=== PATIENT | female | born 1985 | race African-American/Black ===

== ENCOUNTER 2017-01-29 20:19 | Emergency (ER) | payer OTHER ==
[~2017-01-29] VITALS: Ht 167.6 cm; Wt 52.0 kg
[~2017-01-29 20:19] MED LIST: PRENAT PO
[2017-01-29 20:21] VITALS: Ht 167.6 cm; Wt 52.0 kg
[2017-01-29] MEDS ORDERED: ONDANSETRON (ODT) 4 MG TAB ODT STA (20:50)
--- NOTE | 2017-01-29 21:21 | ERD ---
ER Documentation Chief Complaint Date/Time DATE: 01/29/17 TIME: 21:15 Chief Complaint 9 wks , pelvic pain since last night HPI 31 year old female presents here in the ER for complaints of pelvic pain and vaginal spotting started today, patient appears to be 9 weeks , 6 para 2 2. Patient also has been having diarrhea and vomiting that started today, 3 episodes of diarrhea. Patient also had 2 episodes of vomiting. Patient does not have any blood in the stool or black stool. Patient does not have any blood in the vomit. Patient also is complaining of dysuria burning pain 4/10 scale, accompanying the pelvic pain and vaginal spotting. Patient describes pelvic pain as cramping pain 4/10 scale, accompanying the vaginal bleeding. ROS All systems reviewed and are negative except as per history of present illness. Medications Home Meds Reported Medications Multivit/Min/Fol Ac/Iron/Pren* ( S*) 1 Tab Tab, 1 TAB PO DAILY, TAB 08/07/14 Allergies Allergies: Coded Allergies: No Known Allergy (Unverified , 08/07/14) PMhx/Soc Immunizations: Up to date Medical and Surgical Hx: pt denies Medical Hx, pt denies Surgical Hx Hx Alcohol Use: No Hx Substance Use: No Hx Tobacco Use: No Smoking Status: Never smoker FmHx Family History: No coronary disease, No diabetes, No other Physical Exam Vitals Vital Signs Date Time Temp Pulse Resp B/P Pulse Ox O2 Delivery O2 Flow Rate FiO2 01/29/17 20:21 97.8 88 20 117/71 100 Physical Exam GENERAL: The patient is well developed and appropriate for usual state of health, in no apparent distress. CHEST: Clear to auscultation bilaterally. There are no rales, wheezes or rhonchi. HEART: Regular rate and rhythm. No murmurs, clicks, rubs or gallops. No S3 or S4. ABDOMEN: Soft, gravid abdomen noted. Hyperactive bowel sounds. No rebound or guarding. No gross peritonitis. No gross organomegaly or masses. No Cummings sign or McBurney point tenderness. BACK: No midline or flank tenderness. EXTREMITIES: Equal pulses bilaterally. There is no peripheral clubbing, cyanosis or edema. No focal swelling or erythema. Full range of motion. Grossly neurovascularly intact. NEURO: Alert and oriented. Cranial nerves 2-12 intact. Motor strength in all 4 extremities with 5/5 strength. Sensation grossly intact. Normal speech and gait. SKIN: There is no apparent rash or petechia. The skin is warm and dry. HEMATOLOGIC AND LYMPHATIC: There is no evidence of excessive bruising or lymphedema. No gross cervical, axillary, or inguinal lymphadenopathy. : Small amount of blood in the vaginal vault, cervical os is closed, no cervical motion tenderness or adnexal tenderness noted. Result Diagram: 01/29/17212201/29/172122 Results 24 hrs Laboratory Tests Test 01/29/17 21:09 01/29/17 21:23 Urine Color YELLOW Urine Clarity CLOUDY Urine pH 6.0 Urine Specific [place] 1.031 Urine Ketones 1+mg/dL Urine Nitrite NEGATIVEmg/dL Urine Bilirubin NEGATIVEmg/dL Urine Urobilinogen NEGATIVEmg/dL Urine Leukocyte Esterase 3+Juan R/ul Urine Microscopic RBC > 182/HPF Urine Microscopic WBC > 182/HPF Urine Squamous Epithelial Cells FEW/HPF Urine Bacteria FEW/HPF Urine Mucus MODERATE/HPF Urine Hemoglobin 3+mg/dL Urine Glucose NEGATIVEmg/dL Urine Total Protein 2+mg/dl White Blood Count 8.310^3/ul Red Blood Count 4.0110^6/ul Hemoglobin 11.2g/dl Hematocrit 34.6% Mean Corpuscular Volume 86.3fl Mean Corpuscular Hemoglobin 27.9pg Mean Corpuscular Hemoglobin Concent 32.4g/dl Red Cell Distribution Width 13.4% Platelet Count 59509^3/UL Mean Platelet Volume 10.9fl Neutrophils % 79.0% Lymphocytes % 13.7% Monocytes % 5.9% Eosinophils % 0.7% Basophils % 0.5% Nucleated Red Blood Cells % 0.0/100WBC Neutrophils # 6.510^3/ul Lymphocytes # 1.110^3/ul Monocytes # 0.510^3/ul Eosinophils # 0.110^3/ul Basophils # 0.010^3/ul Nucleated Red Blood Cells # 0.010^3/ul Sodium Level 140mmol/L Potassium Level 4.2mmol/L Chloride Level 100mmol/L Carbon Dioxide Level 25mmol/L Anion Gap 19 Blood Urea Nitrogen 12mg/dl Creatinine 0.66mg/dl Glucose Level 102mg/dl Calcium Level 9.6mg/dl Total Bilirubin 0.4mg/dl Direct Bilirubin 0.00mg/dl Indirect Bilirubin 0.4mg/dl Aspartate Amino Transf (AST/SGOT) 19IU/L Alanine Aminotransferase (ALT/SGPT) 30IU/L Alkaline Phosphatase 60IU/L Total Protein 7.9g/dl Albumin 4.3g/dl Globulin 3.60g/dl Albumin/Globulin Ratio 1.19 Beta HCG, Quantitative 614939.0mIU/ml Current Medications Medications (Trade) Dose Ordered Sig/Laury Route PRN Reason Start Time Stop Time Status Last Admin Dose Admin Ondansetron HCl (Zofran Odt) 4 mg ONCE STAT ODT 01/29/17 20:50 01/29/17 20:51 DC 01/29/17 21:13 Patient was given Zofran here in the emergency department. After treatment, patient was able to tolerate po fluids here in the emergency department without any vomiting. There is no signs and symptoms of dehydration. PROCEDURE: OB Ultrasound. CLINICAL INDICATION: Positive test. Vaginal bleeding. TECHNIQUE: Ultrasound of the pelvis was performed with transabdominal sonography in the axial and sagittal planes. COMPARISON: No prior study is available for comparison. FINDINGS: There is a single intrauterine gestational sac. pole and yolk sac are present. There is heart motion. heart rate is 168 beats per minute. [place]-rump length is 2.10 cm. Mean sac diameter is 2.72 cm. There is a small subchorionic hemorrhage. Menstrual age by ultrasound dates is 8 weeks 2 days. This indicates an expected date of delivery of 09/08/2017. The right ovary appears normal measuring 3.0 x 2.6 x 2.5 cm. The left ovary appears normal measuring 3.5 x 1.6 x 2.5 cm. Color Doppler and pulsed Doppler sonography demonstrate normal flow to the ovaries. There is no other pelvic mass or free fluid. IMPRESSION: 1. Single live intrauterine gestation of 8 weeks 2 days menstrual age by ultrasound dates. 2. Expected date of delivery is 09/08/2017. 3. Small subchorionic hemorrhage. RPTAT: QQ .Merlin Cason MD, MD Date Time Electronically viewed and signed by .Merlin Cason MD, on 01/29/2017:29 .R/ CC: HAVEN FARNSWORTH NP Procedures/MDM Medical Decision Making: Patient's symptoms of vomiting and diarrhea most active consistent with viral gastroenteritis. No symptoms of dehydration at this time. There is low suspicion for abdominal emergencies at this time. Patients abdominal exam is normal at this time. Patients radiology exam does not show any abdominal emergencies at this time. There is low suspicion for appendicitis, cholecystitis, abdominal aortic aneurysms or peritonitis at this time. There is low suspicion for sepsis. Patient appears well and is hemodynamically stable. Patients vaginal bleeding is most likely consistent of possible threatened . Patient does not show any evidence of hypovolemic shock. Patients hemoglobin and hematocrit is stable. There is low suspicion for ectopic . VIRI results show intrauterine with subchorionic hemorrhage BetaHCG Quantitative is appropriate The patient is Rh+, does not need RhoGAM this time. There is no signs of symptoms of dehydration. There is low suspicion for sepsis. Patient appears well and is hemodynamically stable. She also has urinary tract infection and will be treated. No symptoms of pyelonephritis at this time. Disposition: Home. Condition: Stable Prescription: Keflex, Tylenol Instructions: Patient is advised to do bed rest, avoid heavy lifting, and avoid having sex until cleared by OB doctor. Patient is advised to follow up with OB doctor or here at the ER in 48 hours for reevaluation of symptoms, repeat beta HCG quantitative and ultrasound. Patient is advised that is symptoms are worst, severe bleeding, dizziness, severe abdominal pain, fever, worst signs and symptoms to return to the emergency department immediately. Departure Diagnosis: Primary Impression: Viral gastroenteritis Additional Impressions: UTI (urinary tract infection) Urinary tract infection type: acute cystitis Hematuria presence: without hematuria Qualified Code: N30.00 - Acute cystitis without hematuria Vaginal bleeding in Trimester: first trimester Qualified Code: O46.91 - Vaginal bleeding in , first trimester Subchorionic hemorrhage Fetus number: single or unspecified fetus Trimester: first trimester Qualified Code: O41.8X10 - Subchorionic hemorrhage, first trimester, not applicable or unspecified fetus Intrauterine Condition: Stable Patient Instructions: Gastroenteritis, Viral (6Y-Adult), Understanding Urinary Tract Infections (UTIs), Vaginal Bleed in Additional Instructions: Patient is advised to do bed rest, avoid heavy lifting, and avoid having sex until cleared by OB doctor. Patient is advised to follow up with OB doctor or here at the ER in 48 hours for reevaluation of symptoms, repeat beta HCG quantitative and ultrasound. Patient is advised that is symptoms are worst, severe bleeding, dizziness, severe abdominal pain, fever, worst signs and symptoms to return to the emergency department immediately. HAVEN FARNSWORHT NP Jan 29, 2017 21:21
[2017-01-29 21:28] LABS: ADD SCAN DIFF NO
--- NOTE | 2017-01-29 21:29 | RADRPT ---
PROCEDURE: OB Ultrasound. CLINICAL INDICATION: Positive test. Vaginal bleeding. TECHNIQUE: Ultrasound of the pelvis was performed with transabdominal sonography in the axial and sagittal planes. COMPARISON: No prior study is available for comparison. FINDINGS: There is a single intrauterine gestational sac. pole and yolk sac are present. There is heart motion. heart rate is 168 beats per minute. [place]-rump length is 2.10 cm. Mean sac diameter is 2.72 cm. There is a small subchorionic hemorrhage. Menstrual age by ultrasound dates is 8 weeks 2 days. This indicates an expected date of delivery of 09/08/2017. The right ovary appears normal measuring 3.0 x 2.6 x 2.5 cm. The left ovary appears normal measuring 3.5 x 1.6 x 2.5 cm. Color Doppler and pulsed Doppler sonography demonstrate normal flow to the ovaries. There is no other pelvic mass or free fluid. IMPRESSION: 1. Single live intrauterine gestation of 8 weeks 2 days menstrual age by ultrasound dates. 2. Expected date of delivery is 09/08/2017. 3. Small subchorionic hemorrhage. RPTAT: QQ .Merlin Cason MD, Date Time Electronically viewed and signed by .Merlin Cason MD, on 01/29/2017 21:29 .R/
[2017-01-29 21:31] LABS: BASOPHILS % 0.5 % (0.0-2.0); EOSINOPHILS # 0.1 10^3/ul (0.0-0.5); EOSINOPHILS % 0.7 % (0.0-7.0); HEMATOCRIT 34.6 % (37.0-47.0); HEMOGLOBIN 11.2 g/dl (12.0-16.0); LYMPHOCYTES # 1.1 10^3/ul (0.8-2.9); LYMPHOCYTES % 13.7 % (15.0-51.0); MEAN CORPUSCULAR HEMOGLOBIN 27.9 pg (29.0-33.0); MEAN CORPUSCULAR HGB CONC 32.4 g/dl (32.0-37.0); MEAN CORPUSCULAR VOLUME 86.3 fl (82.0-101.0); MEAN PLATELET VOLUME 10.9 fl (7.4-10.4); MONOCYTE # 0.5 10^3/ul (0.3-0.9); MONOCYTES % 5.9 % (0.0-11.0); NEUTROPHIL # 6.5 10^3/ul (1.6-7.5); PLATELET COUNT 212 10^3/UL (140-415); RED BLOOD COUNT 4.01 10^6/ul (4.20-5.40); RED CELL DISTRIBUTION WIDTH 13.4 % (11.5-14.5); WHITE BLOOD COUNT 8.3 10^3/ul (4.8-10.8)
[2017-01-29 21:49] LABS: ADD UMIC YES; UR ASCORBIC ACID NEGATIVE (NEGATIVE); UR BACTERIA FEW /HPF (NONE SEEN); UR BILIRUBIN (Dip) NEGATIVE (NEGATIVE); UR BLOOD (Dip) 3+ mg/dL (NEGATIVE); UR CLARITY CLOUDY (CLEAR); UR COLOR YELLOW (YELLOW); UR GLUCOSE (Dip) NEGATIVE (NEGATIVE); UR KETONES (Dip) 1+ mg/dL (NEGATIVE); UR LEUKOCYTE ESTERASE (Dip) 3+ Leu/ul (NEGATIVE); UR MUCUS MODERATE /HPF (NONE SEEN); UR NITRITE (Dip) NEGATIVE (NEGATIVE); UR RBC > 182 /HPF (0-5); UR SPECIFIC GRAVITY (Dip) 1.031 (1.003-1.030); UR SQUAMOUS EPITHELIAL CELL FEW /HPF (FEW); UR TOTAL PROTEIN (Dip) 2+ mg/dl (NEGATIVE); UR UROBILINOGEN (Dip) NEGATIVE (NEGATIVE)
[2017-01-29 22:21] LABS: ALBUMIN 4.3 g/dl (3.3-4.9); ALBUMIN/GLOBULIN RATIO 1.19; BILIRUBIN,INDIRECT 0.4 mg/dl (0-1.1); BILIRUBIN,TOTAL 0.4 mg/dl (0.2-1.3); CALCIUM 9.6 mg/dl (8.4-10.2); CREATININE 0.66 mg/dl (0.44-1.00); POTASSIUM 4.2 mmol/L (3.5-5.1); TOTAL PROTEIN 7.9 g/dl (6.1-8.1)
[2017-01-29] MEDS ORDERED: ACET500C5 PO (22:49)
[2017-01-29] MEDS ORDERED: ONDA4TAB14 PO (22:49)
[2017-01-29] MEDS ORDERED: CEPH-443 PO (22:49)
[2017-01-29 22:58] VITALS: BP 137/58; PULSE 96; RESP 17
== END 2017-01-29 22:59 | disposition home or self-care (01) ==
LOC: FTE 20:19
DX: A08.4 Viral intestinal infection, unspecified (principal); O23.11 Infections of bladder in pregnancy, first trimester; O20.9 Hemorrhage in early pregnancy, unspecified; O41.8X11 Other specified disorders of amniotic fluid and membranes, first trimester, fetus 1; R10.2 Pelvic and perineal pain; Z3A.08 8 weeks gestation of pregnancy
CPT/HCPCS: 76801; 80053; 81001; 84702; 85025; 86900; 86901; Z7502; Z7610

== ENCOUNTER 2017-05-27 14:20 | Emergency (ER) | payer OTHER ==
[~2017-05-27] VITALS: Wt 60.6 kg
[~2017-05-27 14:20] MED LIST changes: +ACET500C5 PO; +CEPH-443 PO; +ONDA4TAB14 PO
[2017-05-27 14:57] LABS: URINE BLOOD (Dip) POC Trace-intact (NEGATIVE)
[2017-05-27] MEDS ORDERED: CLOT45CR19 VAG (15:02)
[2017-05-27] MEDS ORDERED: CEPH-443 PO (15:03)
--- NOTE | 2017-05-27 15:22 | ERD ---
ER Documentation Chief Complaint Chief Complaint genital irritation HPI 31-year-old female complaining of vaginal itching on and off for 1 month, and vaginal discharge for last 2 days. She describes discharge as cottage cheese like in texture and color. Patient is 26 weeks . She saw her OB 2 days ago, was told that she may have reaction to the new soap. She change her soap to the one recommended by her OB. Patient reports feeling more burning sensation after the change. kick count is normal. Denies dysuria. Denies fever or chills. Denies vaginal bleeding. ROS All systems reviewed and are negative except as per history of present illness. Medications Home Meds Active Scripts Cephalexin* (Keflex*) 500 Mg Capsule, 500 MG PO BID for 7 Days, CAP Prov:BETH NAVARRETE [employer] 05/27/17 Clotrimazole* (Clotrimazole-7*) Vaginal Cream..g., 1 APPLIC VAG HS for 7 Days, EA Prov:BETH NAVARRETE [employer] 05/27/17 Ondansetron (Ondansetron Odt) 4 Mg Tab.rapdis, 4 MG PO Q8 Y for NAUSEA AND/OR VOMITING, #30 TAB Prov:HAVEN FARNSWORTH NP 01/29/17 Acetaminophen* (Tylophen*) 500 Mg Capsule, 1 CAP PO Q6H Y for PAIN AND OR ELEVATED TEMP, #20 CAP Prov:HAVEN FARNSWORTH NP 01/29/17 Cephalexin* (Keflex*) 500 Mg Capsule, 500 MG PO QID for 10 Days, CAP Prov:HAVEN FARNSWORTH [employer] 01/29/17 Reported Medications Multivit/Min/Fol Ac/Iron/Pren* ( S*) 1 Tab Tab, 1 TAB PO DAILY, TAB 08/07/14 Allergies Allergies: Coded Allergies: No Known Allergy (Unverified , 08/07/14) PMhx/Soc History of Surgery: No Anesthesia Reaction: No Hx Neurological Disorder: No Hx Respiratory Disorders: No Hx Cardiac Disorders: No Hx Psychiatric Problems: No Hx Miscellaneous Medical Probl: No Hx Alcohol Use: No Hx Substance Use: No Hx Tobacco Use: No Physical Exam Vitals Vital Signs Date Time Temp Pulse Resp B/P Pulse Ox O2 Delivery O2 Flow Rate FiO2 05/27/17 14:22 98.2 118 20 104/66 98 Physical Exam General: Well-developed, well-nourished, conscious and coherent, in no distress Skin: Warm and dry without rash, good texture and turgor Head: Normocephalic without evidence of trauma Chest: Normal AP diameter. Good expansion without retractions. Nontender. Lungs are clear to auscultate bilaterally with good tidal volume Heart: Regular rate and rhythm. No murmur, rub, or gallops heard : External genitalia erythematous with thick white discharge, without lesions or masses. Vaginal vault clear. Cervix normal, no cervical motion tenderness noted. Uterus nontender and normal size. No adnexal tenderness or masses noted. Extremities: Full range of motion. Good strength bilaterally. No clubbing, cyanosis, or edema. Peripheral pulses are intact. Sensation intact Neuro: Alert and oriented 4, GCS 15. Cranial nerves grossly intact. Motor and sensory exams nonfocal. Moves all extremities. Speech clear. Gait normal Results 24 hrs Laboratory Tests Test 05/27/17 14:55 Bedside Urine pH (LAB) 6.5 Bedside Urine Protein (LAB) 2+ Bedside Urine Glucose (UA) Negative Bedside Urine Ketones (LAB) Trace Bedside Urine Blood Trace-intact Bedside Urine Nitrite (LAB) Negative Bedside Urine Leukocyte Esterase (L 3+ Procedures/MDM Well-appearing 31-year-old female presented ED was symptoms and exam findings consistent with yeast vaginitis. Urine dip also performed in the ER, which showed 3+ leukocyte, negative nitrite. The patient denies dysuria, I suspect patient has UTI. Since patient is , I feel it is necessary to treat her UTI at this time. Patient appears well, stable for discharge and outpatient management. Medical decision making shared with patient and family. Education provided to patient and family. Patient and family expressed understanding of the plan. Medications on discharge: Clotrimazole suppository, Keflex. Follow-up: Primary care provider in 2-3 days or return to ED if worse. Disclaimer: Inadvertent spelling and grammatical errors are likely due to EHR/ dictation software use and do not reflect on the overall quality of patient care. Also, please note that the electronic time recorded on this note does not necessarily reflect the actual time of the patient encounter. Departure Diagnosis: Primary Impression: Yeast vaginitis Additional Impression: UTI (urinary tract infection) Urinary tract infection type: acute cystitis Hematuria presence: with hematuria Qualified Code: N30.01 - Acute cystitis with hematuria Condition: Stable Patient Instructions: Understanding Urinary Tract Infections (UTIs), Vaginal Infection: Yeast (Candidiasis) Additional Instructions: Call your primary care doctor TOMORROW for an appointment during the next 2-3 days.See the doctor sooner or return here if your condition worsens before your appointment time. BETH NAVARRETE NP May 27, 2017 15:22
== END 2017-05-27 15:32 | disposition home or self-care (01) ==
LOC: FTE 14:20
DX: B37.3 Candidiasis of vulva and vagina (principal); N30.01 Acute cystitis with hematuria
CPT/HCPCS: 81003; 87086; Z7502; 99284

== ENCOUNTER 2017-07-11 21:11 | Outpatient (CLI) | payer OTHER ==
[~2017-07-11] VITALS: Ht 157.5 cm; Wt 66.3 kg
[~2017-07-11 21:11] MED LIST changes: +CLOT45CR19 VAG
[2017-07-11 21:58] VITALS: BP 113/63; PULSE 121; RESP 18
[2017-07-11] MEDS ORDERED: CALC600T5 PO (22:01)
[2017-07-11] MEDS ORDERED: FERR134T PO (22:01)
[2017-07-11] MEDS ORDERED: FOLI0.8C PO (22:01)
[2017-07-11 22:29] LABS: ADD UMIC YES; UR ASCORBIC ACID 40 mg/dL (NEGATIVE); UR BACTERIA FEW /HPF (NONE SEEN); UR BILIRUBIN (Dip) NEGATIVE (NEGATIVE); UR BLOOD (Dip) NEGATIVE (NEGATIVE); UR CLARITY SLIGHTLY CLOUDY (CLEAR); UR COLOR YELLOW (YELLOW); UR GLUCOSE (Dip) NEGATIVE (NEGATIVE); UR KETONES (Dip) 1+ mg/dL (NEGATIVE); UR LEUKOCYTE ESTERASE (Dip) 2+ Leu/ul (NEGATIVE); UR MUCUS FEW /HPF (NONE SEEN); UR NITRITE (Dip) NEGATIVE (NEGATIVE); UR RBC 4 /HPF (0-5); UR SPECIFIC GRAVITY (Dip) 1.026 (1.003-1.030); UR SQUAMOUS EPITHELIAL CELL FEW /HPF (FEW); UR TOTAL PROTEIN (Dip) 1+ mg/dl (NEGATIVE); UR UROBILINOGEN (Dip) NEGATIVE (NEGATIVE)
--- NOTE | 2017-07-11 23:11 | RADRPT ---
PROCEDURE: Limited OB ultrasound CLINICAL INDICATION: Leaking fluid. Evaluate fluid volume. TECHNIQUE: Sonographic evaluation to assess the amniotic fluid volume was performed. Transabdomina l imaging of the gravid uterus was performed. COMPARISON: US 08/07/2014 FINDINGS: Single live intrauterine with cardiac activity is identified with a heart rate of 148 beats per minute. There is a cephalic lie and an anterior, grade II placenta. The amnio tic -fluid volume equals approximately 9.87 cm. The cervix is closed measuring 4.0 cm. IMPRESSION: 1. Amniotic fluid volume equals 9.87 cm, which is within normal limits. RPTAT: HLBP .Bird Naranjo MD, Date Time Electronically viewed and signed by .Bird Naranjo MD, MD on 07/11/2017 23:11 .P/
--- NOTE | 2017-07-12 02:25 | PN ---
Triage Information Date/Time Jul 12, 2017 Reason for visit: SROM Weeks of Gestation 32w 6d /Para 6/2 Diabetes: none Hypertention: none Additional information Pt reports leaking fluid x 6 days, + cramping since 07/10 pm, and pain with walking for a few weeks. PMHx: none. PSHx: C/S x 1. NKDA Objective Vital Signs Date Time Temp Pulse Resp B/P Pulse Ox O2 Delivery O2 Flow Rate FiO2 07/11/17 21:58 98.9 121 18 113/63 Room Air Heart Rate: 140's Heart Rate Comments Accels to 170 bpm. No decels. Contractions: None Exam Deferred cx exam. Results/Medications Results 24 hrs Laboratory Tests Test 07/11/17 21:20 07/11/17 22:31 Urine Color YELLOW Urine Clarity SLIGHTLY CLOUDY A Urine pH 5.0 Urine Specific [place] 1.026 Urine Ketones 1+ H Urine Nitrite NEGATIVE Urine Bilirubin NEGATIVE Urine Urobilinogen NEGATIVE Urine Leukocyte Esterase 2+ H Urine Microscopic RBC 4 Urine Microscopic WBC 21 H Urine Squamous Epithelial Cells FEW Urine Bacteria FEW A Urine Mucus FEW A Urine Hemoglobin NEGATIVE Urine Glucose NEGATIVE Urine Total Protein 1+ H Membranes Rupture NEGATIVE Imaging Results RUFINA 9.8 Cx long and closed and 4 cm long. Disposition: Discharge Assessment/Plan A: IUP at 32w 6d. SROM ruled out. P: Encouraged fluid intake. Pt may go home and take Tylenol and a hot shower before she goes to bed. Keep appt in clinic next week. TIFFANY CAMPUZANO MD Jul 12, 2017 02:25
--- NOTE | 2017-07-12 02:26 | TRIAGE ---
OB Triage Datetime Report Generated by CPN: 07/12/2017 02:26 Datetime: 07/12/2017 01:29 Labor Evaluation Monitor Mode: External Pattern: Normal: <= 5 Contractions in 10 Minutes Resting Tone [place]: Relaxed Heart Rate FHR Baseline Rate: 140 Monitor Mode: External US FHR Baseline Changes: No Baseline Change Variability: Moderate 6-25 bpm Accelerations: 15X15 Decelerations: None Category: Category I Datetime: 07/12/2017 01:14 Vaginal Exam Membrane Status: Intact Datetime: 07/12/2017 00:40 Stage of : OB Triage Datetime: 07/12/2017 00:37 Stage of : OB Triage Labor Evaluation Monitor Mode: External Quality: Mild Pattern: Normal: <= 5 Contractions in 10 Minutes Resting Tone [place]: Relaxed Heart Rate FHR Baseline Rate: 145 Monitor Mode: External US FHR Baseline Changes: No Baseline Change Variability: Moderate 6-25 bpm Accelerations: 15X15 Decelerations: None Category: Category I Pain Assessment Pain Scale: 3 Pain Assessment Comments: Pt states little pain when lying in bed Datetime: 07/11/2017 23:35 Stage of : OB Triage Labor Evaluation Monitor Mode: External Quality: Mild Pattern: Normal: <= 5 Contractions in 10 Minutes Resting Tone [place]: Relaxed Heart Rate FHR Baseline Rate: 150 Monitor Mode: External US Variability: Moderate 6-25 bpm Accelerations: 15X15 Decelerations: None Datetime: 07/11/2017 22:47 Stage of : OB Triage Datetime: 07/11/2017 22:35 Amniotic Fluid Amount: None Amniotic Fluid Odor: None Pool: Negative Nitrazine: Negative Datetime: 07/11/2017 22:19 Duration (sec)2399: 20-30sec Quality: Mild Pattern: Normal: <= 5 Contractions in 10 Minutes Resting Tone [place]: Relaxed Heart Rate FHR Baseline Rate: 145 Monitor Mode: External US FHR Baseline Changes: No Baseline Change Variability: Moderate 6-25 bpm Accelerations: 15X15 Decelerations: None Datetime: 07/11/2017 21:30 Time of Arrival: 07/11/2017 21:02 EGA: 32.5 Arrived By: Wheelchair Arrived From: Home Chief Complaint: sent w/ orders from clinic for ROM+, RUFINA,CVL d/t c/o pain and leaking fluid since last Saturday Movement: Present Contractions: Irregular Time Contractions Began: 07/10/2017 22:00 Rupture of Membranes: Unsure Vaginal Bleeding: None Vaginal Discharge: Present Recent Sexual Intercouse: Denies Abdominal Trauma: Not Applicable Patient Complaints: Cramping; Back Pain Time Provider Notified: 07/11/2017 22:47 Provider Notified: Dr Brownlee Initial Plan: EFM,RUFINA,CVL,ROM,spec exam, UA Datetime: 07/11/2017 21:25 Stage of : OB Triage Maternal Assessment Level of Consciousness: Fully Conscious Headache: Denies Blurred Vision: No Respiratory Effort: Unlabored Nausea/Vomiting: Denies RUQ Epigastric Pain: Denies Facial Edema: None Labor Evaluation Monitor Mode: External Resting Tone [place]: Relaxed Monitor Mode: External US Comments: FHT 150 Pain Assessment Pain Scale: 8 Pain Presence: Intermittent Pain Type: Cramping Pain Location: Abdomen Pain Assessment Comments: Pain when walking
== END 2017-07-12 02:20 | disposition home or self-care (01) ==
LOC: OBT 21:11 → L-D 21:12 → OBT 07-12 02:20
PROVIDERS: ATTEND Obstetrics & Gynecology
DX: O42.913 Preterm premature rupture of membranes, unspecified as to length of time between rupture and onset of labor, third trimester (principal); Z3A.32 32 weeks gestation of pregnancy
CPT/HCPCS: 76815; 76817; 81001; 84112

== ENCOUNTER 2017-08-04 19:26 | Outpatient (CLI) | END 2017-08-05 00:45 | disposition home or self-care (01) ==

== ENCOUNTER 2017-08-05 00:49 | Emergency (ER) | END 2017-08-05 03:37 | disposition home or self-care (01) ==

== ENCOUNTER 2017-08-17 07:53 | Inpatient (IN) | END 2017-08-20 13:35 | disposition home or self-care (01) | DRG 766 ==

== ENCOUNTER 2017-08-24 18:36 | Emergency (ER) | END 2017-08-24 21:47 | disposition left against medical advice (07) ==